=== PATIENT | male | born 1960 | race African-American/Black ===

== ENCOUNTER 2020-05-09 10:56 | Inpatient (IN) | payer OTHER ==
[~2020-05-09] VITALS: Ht 172.7 cm; Wt 87.0 kg
[2020-05-09] MEDS ORDERED: BAYER CHEWABLE81 MG PO (11:01)
[2020-05-09] MEDS ORDERED: IMODIUM2 MG PO (11:02)
[2020-05-09] MEDS ORDERED: CARDIZEM 90 MG90 MG PO (11:02)
[2020-05-09] MEDS ORDERED: DEPAKOTE500 MG PO (11:02)
[2020-05-09] MEDS ORDERED: HYDRALAZINE HCL25 MG PO (11:02)
[2020-05-09] MEDS ORDERED: ROCALTROL0.25 MCG PO (11:02)
[2020-05-09] MEDS ORDERED: XALATAN 0.0052.5 ML EACH EYE (11:03)
[2020-05-09] MEDS ORDERED: REGLAN5 MG PO (11:03)
[2020-05-09] MEDS ORDERED: VITAMIN B-625 MG PO (11:04)
[2020-05-09] MEDS ORDERED: HYTRIN5 MG PO (11:04)
[2020-05-09] MEDS ORDERED: SODIUM BICARBO650 MG PO (11:04)
[2020-05-09] MEDS ORDERED: NOVOLOG100 UNIT/1 SC (11:04)
[2020-05-09] MEDS ORDERED: TOPROL XL200 MG PO (11:04)
[2020-05-09] MEDS ORDERED: PROTONIX40 MG PO (11:04)
[2020-05-09 11:52] LABS: HEMATOCRIT 28.2 % (42.0-54.0); HEMOGLOBIN 8.7 g/dL (13.5-17.5); LYMPHOCYTES 15.5 % (15-50); MCH 27.5 pg (26.0-34.0); MCHC 30.9 g/dL (31.0-37.0); MCV 89.2 fL (80.0-100.0); MEAN PLATELET VOLUME 10.9 fL (7.4-10.4); NEUTROPHILS 74.4 % (40-80); PLATELET COUNT 199 10x3/uL (130-400); RBC 3.16 10x6/uL (4.20-6.10); RDW 13.4 % (11.5-14.5)
[2020-05-09 11:59] LABS: ANION GAP 26.2 mmol/L (8-16); CALCIUM 7.4 mg/dL (8.5-10.1); CARBON DIOXIDE 17.4 mmol/L (21.0-32.0); CREATININE - SERUM 9.7 mg/dL (0.6-1.3); POTASSIUM - SERUM 5.6 mmol/L (3.5-5.1)
[2020-05-09 12:04] LABS: APTT 26.6 SECONDS (22.8-39.4); INR 1.04 (0.85-1.17); PROTIME 13.6 SECONDS (11.6-15.0)
[2020-05-09 12:05] LABS: ALBUMIN 2.4 g/dL (3.4-5.0); BILIRUBIN - TOTAL 0.3 mg/dL (0.2-1.3); MAGNESIUM - SERUM 2.4 mg/dL (1.8-2.4); PROTEIN - SERUM 6.9 g/dL (6.4-8.2)
--- NOTE | 2020-05-09 12:47 | NUR ---
CRITICAL LAB: GLUCOSE 776. NOTIFIED JOHNATHON CRAFT NP.
[2020-05-09 14:24] LABS: C-REACTIVE PROTEIN 4.1 mg/dL (0.0-0.9); THYROID STIMULATING HORMONE 1.11 uIU/mL (0.36-3.74)
--- NOTE | 2020-05-09 16:10 | NUR ---
1610 PT OPEN EYES, OCC COUGH REPORT TO ER NURSEE.
--- NOTE | 2020-05-09 18:41 | NUR ---
ADMIT PT TO ICU. PT IN ISOLATION AWAITING COVID 19 TEST.
[2020-05-09 19:00] VITALS: BP 158/90
--- NOTE | 2020-05-09 19:00 | NUR ---
SHIFT ASSESSMENT COMPLETED. PT CARE ASSUMED. MONITORS ON AND WORKING, PT AWAKE AND ALERT, VSS, INSULIN DRIP INFUSING. CALL LIGHT WITHIN REACH, WILL CONTINUE TO OBSERVE.
[2020-05-09 20:00] VITALS: BP 145/98
[2020-05-09 20:31] VITALS: BP 163/58; BMI 30.1
[2020-05-09 21:00] VITALS: BP 149/85
--- NOTE | 2020-05-09 21:00 | NUR ---
PT LYING IN BED RESTING. Q1H FSBS, PT AWAKE AND ALERT, MONITORS ON AND WORKING, VITALS STABLE. CALL LIGHT WITHIN REACH, WILL CONTINUE TO OBSERVE.
[2020-05-09 22:00] VITALS: BP 133/76
[2020-05-09 22:29] LABS: ANION GAP 13.8 mmol/L (8-16); CALCIUM 7.4 mg/dL (8.5-10.1); CARBON DIOXIDE 24.8 mmol/L (21.0-32.0); CREATININE - SERUM 8.9 mg/dL (0.6-1.3); POTASSIUM - SERUM 3.6 mmol/L (3.5-5.1)
[2020-05-09 22:30] LABS: HEMATOCRIT 27.2 % (42.0-54.0); HEMOGLOBIN 8.8 g/dL (13.5-17.5)
[2020-05-09 23:00] VITALS: BP 140/70
--- NOTE | 2020-05-09 23:00 | NUR ---
NO CHANGES, MONITORS ON AND WORKING, VSS, CALL LIGHT WITHIN REACH, SEE FLOW SHEET FOR FURTHER DETAILS. WILL CONTINUE TO OBSERVE.
[2020-05-10] VITALS (22 sets, daily range): BP systolic 113–187; BP diastolic 61–91; BMI 30.1
--- NOTE | 2020-05-10 01:00 | NUR ---
PT LYING IN BED RESTING, MONITORS ON AND WORKING, VSS, CALL LIGHT WITHIN REACH, WILL CONTINUE TO OBSERVE.
--- NOTE | 2020-05-10 03:00 | NUR ---
DR KINNEY IN UNIT REVIEWING PT CHART. REC'D ORDERS TO START D5 1/2 NS AT 100ML/HR. SEE FLOW SHEET FOR FURTHER DETAILS, WILL CONTINUE TO OBSERVE.
--- NOTE | 2020-05-10 05:00 | NUR ---
PT LYING IN BED RESTING. MONITORS ON AND WORKING VSS. CALL LIGHT WITHIN REACH, WILL CONTINUE TO OBSERVE.
[2020-05-10 05:31] LABS: HEMATOCRIT 27.4 % (42.0-54.0); HEMOGLOBIN 8.9 g/dL (13.5-17.5); LYMPHOCYTES 24.1 % (15-50); MCH 28.3 pg (26.0-34.0); MCHC 32.5 g/dL (31.0-37.0); MEAN PLATELET VOLUME 10.1 fL (7.4-10.4); PLATELET COUNT 192 10x3/uL (130-400); RBC 3.15 10x6/uL (4.20-6.10); RDW 14.2 % (11.5-14.5); WBC 6.1 10x3/uL (4.8-10.8)
[2020-05-10 05:57] LABS: ALBUMIN 2.5 g/dL (3.4-5.0); ANION GAP 16.5 mmol/L (8-16); BILIRUBIN - TOTAL 0.18 mg/dL (0.2-1.3); CALCIUM 8.1 mg/dL (8.5-10.1); CARBON DIOXIDE 23.6 mmol/L (21.0-32.0); CREATININE - SERUM 8.8 mg/dL (0.6-1.3); MAGNESIUM - SERUM 2.3 mg/dL (1.8-2.4); POTASSIUM - SERUM 4.1 mmol/L (3.5-5.1); PROTEIN - SERUM 6.2 g/dL (6.4-8.2); THYROID STIMULATING HORMONE 1.19 uIU/mL (0.36-3.74); TROPONIN-I 0.024 ng/mL (0.000-0.060)
[2020-05-10 06:04] LABS: PHOSPHOROUS 3.4 mg/dL (2.5-4.9)
--- NOTE | 2020-05-10 08:48 | NUR ---
SPOKE WITH PT FAMILY MEMBER. UPDATE GIVEN. WILL CONTINUE TO MONITOR
--- NOTE | 2020-05-10 10:34 | NUR ---
PHONE CALL DR KINNEY. LAB RESULTS REVIEWED. ORDERED STAT CMP AND MAG. ORDERS PLACED.
--- NOTE | 2020-05-10 14:11 | NUR ---
DR JANIS RYDER FOR TRIALYSIS CATH.
[2020-05-10 16:50] LABS: HEMATOCRIT 28.8 % (42.0-54.0); HEMOGLOBIN 8.6 g/dL (13.5-17.5)
--- NOTE | 2020-05-10 16:50 | NUR ---
SPOKE WITH PT FAMILY MEMBER. UPDATE GIVEN. NO FURTHER QUESTIONS AT THIS TIME. WILL CONTINUE TO MONITOR
[2020-05-10 17:55] LABS: ANION GAP 19.6 mmol/L (8-16); CALCIUM 7.6 mg/dL (8.5-10.1); CREATININE - SERUM 8.2 mg/dL (0.6-1.3); POTASSIUM - SERUM 3.6 mmol/L (3.5-5.1)
[2020-05-10 18:03] LABS: ALBUMIN 2.2 g/dL (3.4-5.0); BILIRUBIN - TOTAL 0.21 mg/dL (0.2-1.3); MAGNESIUM - SERUM 1.8 mg/dL (1.8-2.4); PROTEIN - SERUM 5.8 g/dL (6.4-8.2)
--- NOTE | 2020-05-10 18:22 | NUR ---
PAGED DR KINNEY TO RELAY LAB RESULTS. AWAITING CALL BACK
--- NOTE | 2020-05-10 18:45 | NUR ---
DR KINNEY RETURNED CALL. UPDATE GIVEN. NEW ORDERS RECEIVED. WILL CONTINUE TO MONITOR
--- NOTE | 2020-05-10 19:00 | NUR ---
SHIFT ASSESSMENT COMPLETED. PT CARE ASSUMED. MONITORS ON AND WORKING, VSS. PT AWAKE AND ALERT. NO SIGNS/SYMPTOMS OF PAIN OR DISCOMFORT NOTED. CALL LIGHT WITHIN REACH, WILL CONTINUE TO OBSERVE.
--- NOTE | 2020-05-10 21:00 | NUR ---
PT LYING IN BED RESTING. MONITORS ON AND WORKING, VSS. CALL LIGHT WITHIN REACH, WILL CONTINUE TO OBSERVE.
--- NOTE | 2020-05-10 23:00 | NUR ---
NO CHANGES. MONITORS ON AND WORKING VSS. CALL LIGHT WITHIN REACH, WILL CONTINUE TO OBSERVE. SEE FLOW SHEET FOR FURTHER DETAILS. WILL CONTINUE TO OBSERVE.
[2020-05-11] VITALS (16 sets, daily range): BP systolic 93–171; BP diastolic 63–99; Ht 172.7 cm; Wt 87.0 kg
--- NOTE | 2020-05-11 01:00 | NUR ---
NO CHANGES, PT RESTING. MONITORS ON AND WORKING, VSS. CALL LIGHT WITHIN REACH, WILL CONTINUE TO OBSERVE.
--- NOTE | 2020-05-11 03:00 | NUR ---
CHG BATH AND LINEN CHANGE COMPLETED. PT TOLERATED WELL. FSBS Q1H, MONITORS ON AND WORKING, VSS. CALL LIGHT WITHIN REACH, SEE FLOW SHEET FOR FURTHER DETAILS. WILL CONTINUE TO OBSERVE.
--- NOTE | 2020-05-11 05:00 | NUR ---
PT LYING IN BED RESTING. MONITORS ON AND WORKING, VSS. CALL LIGHT WITHIN REACH, WILL CONTINUE TO OBSERVE.
--- NOTE | 2020-05-11 07:00 | NUR ---
BEDSIDE REPORT RECEIVED. SHIFT ASSESSMENT COMPLETED PER FLOWSHEET, SEE FLOWSHEET FOR INFORMATION. VSS. NO ACUTE NEEDS OR DISTRESS NOTED AT THIS TIME. DECREASED INSULIN DRIP PER PROTOCOL. WILL CONT TO MONITOR.
[2020-05-11 07:15] LABS: ANION GAP 15.3 mmol/L (8-16); CALCIUM 7.4 mg/dL (8.5-10.1); CREATININE - SERUM 7.5 mg/dL (0.6-1.3); POTASSIUM - SERUM 3.3 mmol/L (3.5-5.1)
[2020-05-11 07:19] LABS: PHOSPHOROUS 2.1 mg/dL (2.5-4.9)
[2020-05-11 08:01] LABS: HEMATOCRIT 24.4 % (42.0-54.0); HEMOGLOBIN 7.6 g/dL (13.5-17.5); LYMPHOCYTES 16.4 % (15-50); MCH 27.3 pg (26.0-34.0); MCHC 31.1 g/dL (31.0-37.0); MCV 87.8 fL (80.0-100.0); MEAN PLATELET VOLUME 9.9 fL (7.4-10.4); NEUTROPHILS 79.8 % (40-80); PLATELET COUNT 170 10x3/uL (130-400); RBC 2.78 10x6/uL (4.20-6.10); RDW 13.9 % (11.5-14.5); WBC 6.7 10x3/uL (4.8-10.8)
--- NOTE | 2020-05-11 09:00 | NUR ---
PT MAKING CONVERSTAION WITH ME USING ASL, NO ACUTE NEEDS OR DISTRESS NOTED AT THIS TIME. VSS. WILL CONT TO MONITOR.
--- NOTE | 2020-05-11 09:07 | NUR ---
Nutrition follow-up: Pt intubated, sedated; COVID+ NPO Insulin drip until anion gap closed for 24 hours Labs reviewed Wt: 197# RDN following.
[2020-05-11 10:32] LABS: % SATURATION 17 % (15-55); IRON 22 ug/dl (35-150); TOTAL IRON BIND CAPACITY 128 ug/dl (260-445); UNSAT IRON BIND CAPACITY 106 ug/dl (150-375)
--- NOTE | 2020-05-11 11:00 | NUR ---
VSSREASSESSMENT CCOMPLETED PER FLOWSHEET, SEE FLOWSHEET FOR INFORMATION. NO ACUTE NEEDS OR DISTRESS NOTED AT THIS TIME. AT BEDSIDE INSERTING RIGHT TRIALYSIS CATHETER. WILL CONT TO MONITOR. VSS.
--- NOTE | 2020-05-11 11:07 | NUR ---
GAVE PERMISSION TO USE TRIALYSIS CATH AFTER LOOKING AT CXR. WILL CONT TO MONITOR.
--- NOTE | 2020-05-11 13:00 | NUR ---
PT DENIES ANY ACUTE NEEDS OR DISTRESS AT THIS TIME. WILL CONT TO MONITOR.
--- NOTE | 2020-05-11 14:08 | NUR ---
SPOKE WITH DIALYSIS NURSE, DIALYSIS NURSE AGREED TO GIVING 2 UNITS OF PRBC VIA DIALYSIS TODAY. WILL CONT TO MONITOR.
--- NOTE | 2020-05-11 15:00 | NUR ---
VSS, NO ACUTE NEEDS OR DISTRESS NOTED AT THIS TIME. WILL CONT TO MONITOR.
[2020-05-11 15:33] LABS: HEMATOCRIT 25.1 % (42.0-54.0); HEMOGLOBIN 7.7 g/dL (13.5-17.5)
--- NOTE | 2020-05-11 17:00 | NUR ---
PT DENIES ANY ACUTE NEEDS OR DISTRESS AT THIS TIME. NEW GOWN AND BRIEFS GIVEN. WILL CONT TO MONITO.R
--- NOTE | 2020-05-11 17:38 | NUR ---
REPORT CALLED TO EVA ESTES ON MED 2. BLOOD SUGAR CHECKED. WILL CONT TO MONITOR.
--- NOTE | 2020-05-11 18:25 | NUR ---
RECIEVED PT FROM ICU, BLACK GAVE PM MEDS MUCH TO MY APPRECIATION. CL IN REACH, SRX2. DIALYSIS AT BEDSIDE.
--- NOTE | 2020-05-11 18:26 | NUR ---
TRANSFERRED PT TO ROOM 2129, EVA ESTES AT BEDSIDE. PT DENIES ANY ACUTE NEEDS OR DISTRESS AT THIS TIME.
--- NOTE | 2020-05-11 19:30 | NUR ---
PT IN BED, AAO X 3, RESP EVEN AND UNLABORED, NO DISTRESS NOTED, CL IN REACH, SR UP X 2.
[2020-05-11 20:55] LABS: HEMATOCRIT 44.7 % (42.0-54.0); HEMOGLOBIN 14.2 g/dL (13.5-17.5)
--- NOTE | 2020-05-12 03:57 | NUR ---
I have reviewed this patient and I concur with the Shift Assessment completed by the Licensed Practical Nurse today this shift.
[2020-05-12 04:17] VITALS: BP 169/67
[2020-05-12 06:19] LABS: BASOPHILS 0.1 % (0-2); EOSINOPHILS 0 % (0-7); IMMATURE GRANULOCYTES 1.2 % (0-5); LYMPHOCYTES 12.5 % (15-50); MCH 27.5 pg (26.0-34.0); MCHC 31.8 g/dL (31.0-37.0); MCV 86.4 fL (80.0-100.0); MEAN PLATELET VOLUME 10.6 fL (7.4-10.4); MONOCYTES 4.8 % (2-11); NEUTROPHILS 81.4 % (40-80); RDW 14.5 % (11.5-14.5); WBC 7.7 10x3/uL (4.8-10.8)
[2020-05-12 06:21] LABS: HEMATOCRIT 30.5 % (42.0-54.0); HEMOGLOBIN 9.7 g/dL (13.5-17.5); PLATELET COUNT 120 10x3/uL (130-400); RBC 3.53 10x6/uL (4.20-6.10)
[2020-05-12 06:46] LABS: BILIRUBIN - TOTAL 0.51 mg/dL (0.2-1.3); CALCIUM 7.8 mg/dL (8.5-10.1); CARBON DIOXIDE 21.1 mmol/L (21.0-32.0); MAGNESIUM - SERUM 1.7 mg/dL (1.8-2.4); PHOSPHOROUS 2.6 mg/dL (2.5-4.9); POTASSIUM - SERUM 4.1 mmol/L (3.5-5.1); PROTEIN - SERUM 5.6 g/dL (6.4-8.2)
[2020-05-12 06:51] LABS: CREATININE - SERUM 5.2 mg/dL (0.6-1.3)
--- NOTE | 2020-05-12 09:39 | NUR ---
PT AWAKE AND ORIENTED, LYING IN BED. ABLE TO PULL HIMSELF UP. PER CUPOLA HOIST OPERATOR PERMISSION, I CLEANED IV POLE, ADDED EXTENSION TUBING, AND PLACED POLE OUTSIDE THE ROOM. MUCH EASIER TO DEAL WITH THE FREQUENT OCCLUSIONS. PT STATES HE FEELS ALRIGHT, NO COMPLAINTS OR CONCERNS A THIS TIME. CL IN REACH, SRX2.
[2020-05-12 12:13] VITALS: BP 158/80
--- NOTE | 2020-05-12 15:42 | NUR ---
I have reviewed this patient and I concur with the Shift Assessment completed by the Licensed Practical Nurse today this shift.
--- NOTE | 2020-05-12 17:50 | NUR ---
PT AWAKE AND ORIENTED, EARLIER TODAY HE REQUESTED TO GET OUT OF BED. CLEANED UP BOWEL MOVEMENT, LET PT STAND. HE IS ABLE TO WALK WITH STANDBY ASSIST. WENT OT HE BATHROOM SEVERAL MORE TIMES. NO COMPLAINTS OR CONCENRS AT THIS TIME. CL IN REACH, SRX2. DIALYSIS IN ROOM. PT SAT IN CHAIR FOR 20 MINUTES, ATE SMALL AMOUTN OF FOOD TODAY.
--- NOTE | 2020-05-12 19:45 | NUR ---
PT IN BED, AAO X 3, RESP EVEN AND UNLABORED, NO DISTRESS NOTED, PT RECEIVING DIALYSIS AT THIS TIME, CL IN REACH, SR UP X 2.
[2020-05-12 20:25] VITALS: BP 145/79
[2020-05-13 00:42] VITALS: BP 153/79
--- NOTE | 2020-05-13 04:05 | NUR ---
I have reviewed this patient and I concur with the Shift Assessment completed by the Licensed Practical Nurse today this shift.
[2020-05-13 04:31] VITALS: BP 140/77
[2020-05-13 05:17] LABS: BASOPHILS 0.2 % (0-2); EOSINOPHILS 0 % (0-7); HEMOGLOBIN 9.6 g/dL (13.5-17.5); IMMATURE GRANULOCYTES 1.7 % (0-5); LYMPHOCYTES 24.9 % (15-50); MCH 27.4 pg (26.0-34.0); MCV 85.7 fL (80.0-100.0); MEAN PLATELET VOLUME 10.2 fL (7.4-10.4); MONOCYTES 8.3 % (2-11); NEUTROPHILS 64.9 % (40-80); PLATELET COUNT 118 10x3/uL (130-400); RDW 14.5 % (11.5-14.5)
[2020-05-13 05:22] LABS: WBC 5.3 10x3/uL (4.8-10.8)
[2020-05-13 05:47] LABS: CALCIUM 8.1 mg/dL (8.5-10.1); PHOSPHOROUS 2.3 mg/dL (2.5-4.9)
[2020-05-13 05:53] LABS: CREATININE - SERUM 4.3 mg/dL (0.6-1.3); MAGNESIUM - SERUM 1.9 mg/dL (1.8-2.4)
[2020-05-13 05:56] LABS: ANION GAP 10.2 mmol/L (8-16); POTASSIUM - SERUM 3.2 mmol/L (3.5-5.1)
[2020-05-13 08:15] VITALS: BP 166/90
--- NOTE | 2020-05-13 18:01 | NUR ---
I have reviewed this patient and I concur with the Shift Assessment completed by the Licensed Practical Nurse today this shift.
--- NOTE | 2020-05-13 18:19 | NUR ---
PT HAS BEEN AWAKE AND ORIENTED THROUGHOUT THE DAY. SALINE LOCKED PER MD ORDER, PT HAS BEEN ABLE TO GET HIMSELF TO AND FROM THE BATHROOM WITHOUT DIFFICULTY. APPEARS STRONGER THAN PREVIOUS SHIFTS. CL IN REACH, SRX2. NO COMPLAINTS/CONCERNS AT THIS TIME.
--- NOTE | 2020-05-13 18:30 | NUR ---
TRANSFER FROM ICU BY W/C. MANDEEPINTED TO ROOM. CALL LIGHT IN REACH. WILL CONT PLAN OF CARE.
--- NOTE | 2020-05-13 19:50 | NUR ---
ROUNDED ON PT AND NO NEEDS ARE MADE KNOWN PT HAD A FEW QUESTIONS HATB I ANSWERED BED IS LOW AND LOCKED PT HAS SL IV AND ABLE TO SAFELY AMBULATE AROUND THE ROOM CALL LIGHT WAS PT WITHIN PT REACH
[2020-05-13 21:27] VITALS: BP 160/85
[2020-05-14 04:45] VITALS: BP 156/80
[2020-05-14 05:53] LABS: ALBUMIN 1.9 g/dL (3.4-5.0); ANION GAP 9.5 mmol/L (8-16); BILIRUBIN - TOTAL 0.24 mg/dL (0.2-1.3); CALCIUM 7.9 mg/dL (8.5-10.1); CREATININE - SERUM 5.2 mg/dL (0.6-1.3); MAGNESIUM - SERUM 2.1 mg/dL (1.8-2.4); PHOSPHOROUS 2.6 mg/dL (2.5-4.9); POTASSIUM - SERUM 3.5 mmol/L (3.5-5.1); PROTEIN - SERUM 5.9 g/dL (6.4-8.2)
--- NOTE | 2020-05-14 06:47 | NUR ---
I have reviewed this patient and I concur with the Shift Assessment completed by the Licensed Practical Nurse today this shift.
[2020-05-14 06:53] LABS: BASOPHILS 0.3 % (0-2); EOSINOPHILS 1.4 % (0-7); HEMATOCRIT 29.9 % (42.0-54.0); HEMOGLOBIN 9.6 g/dL (13.5-17.5); LYMPHOCYTES 30.4 % (15-50); MCH 27.9 pg (26.0-34.0); MCHC 32.1 g/dL (31.0-37.0); MCV 86.9 fL (80.0-100.0); MEAN PLATELET VOLUME 9.6 fL (7.4-10.4); MONOCYTES 13.9 % (2-11); RBC 3.44 10x6/uL (4.20-6.10); RDW 14.6 % (11.5-14.5); WBC 5.8 10x3/uL (4.8-10.8)
[2020-05-14 06:55] LABS: PLATELET COUNT 177 10x3/uL (130-400)
[2020-05-14 08:16] VITALS: BP 164/94
--- NOTE | 2020-05-14 09:18 | NUR ---
PT AWAKE AND ORIENTED. NO COMPLAINTS OR CONCERNS AT THIS TIME. ATE BREAKFAST, UP WITHOTU ASSIST TO THE BATHROOM. NO COMPLAINTS OR CONCENRS STATED AT THIS TIME. CL IN REACH, SRX2.
--- NOTE | 2020-05-14 17:46 | NUR ---
PT HAS BEEN AWAKE AND OREINTED, UP WITH OUT DIFFICULTY AROUND ROOM. NO COMPLAINTS OR CONCERNS THROUGHOUT THE DAY. SPOKE WITH DIALYSIS COORIDNATER AND [facility] REP, SHE ASKED FOR SOME TIME TO ARRANGE HIS TREATMENT AN DHOUSING. WILL CNT. TO MONITOR. PT STABLE ON ROOM AIR. CL IN REACH, SRX2.
--- NOTE | 2020-05-14 18:37 | NUR ---
I have reviewed this patient and I concur with the Shift Assessment completed by the Licensed Practical Nurse today this shift.
--- NOTE | 2020-05-14 19:12 | NUR ---
ROUNDED ON PT PT IS AT REST AND AROUSES EASILY BED IS LOW AND LOCKED AND CALL LIGHT IS WITH PT PT DENIES ANY NEEDS AT THIS TIME
[2020-05-14 21:00] LABS: HEMATOCRIT 30.5 % (42.0-54.0); HEMOGLOBIN 9.7 g/dL (13.5-17.5)
[2020-05-14 21:26] VITALS: BP 124/64
[2020-05-15 00:30] VITALS: BP 168/94
--- NOTE | 2020-05-15 02:37 | NUR ---
I have reviewed this patient and I concur with the Shift Assessment completed by the Licensed Practical Nurse today this shift.
[2020-05-15 05:32] LABS: BASOPHILS 0 % (0-2); HEMATOCRIT 30.2 % (42.0-54.0); HEMOGLOBIN 9.6 g/dL (13.5-17.5); IMMATURE GRANULOCYTES 0.6 % (0-5); LYMPHOCYTES 29.9 % (15-50); MCH 27.7 pg (26.0-34.0); MCHC 31.8 g/dL (31.0-37.0); MEAN PLATELET VOLUME 9.3 fL (7.4-10.4); MONOCYTES 16.6 % (2-11); NEUTROPHILS 49.9 % (40-80); PLATELET COUNT 208 10x3/uL (130-400); RBC 3.47 10x6/uL (4.20-6.10); RDW 14.3 % (11.5-14.5); WBC 5.4 10x3/uL (4.8-10.8)
[2020-05-15 05:53] LABS: ALBUMIN 1.9 g/dL (3.4-5.0); BILIRUBIN - TOTAL 0.28 mg/dL (0.2-1.3); CALCIUM 8.1 mg/dL (8.5-10.1); CARBON DIOXIDE 25.4 mmol/L (21.0-32.0); CREATININE - SERUM 5.1 mg/dL (0.6-1.3); MAGNESIUM - SERUM 1.9 mg/dL (1.8-2.4)
[2020-05-15 06:43] LABS: ANION GAP 12.5 mmol/L (8-16); POTASSIUM - SERUM 3.9 mmol/L (3.5-5.1)
[2020-05-15 09:16] VITALS: BP 157/77
--- NOTE | 2020-05-15 10:08 | NUR ---
REPORT RECEIVED. WILL CONTINUE WITH POC. PT IS ASLEEP UPON ENTERING THE ROOM. VSS AND WNL. RR EVEN AND UNLABORED ON RA. NO S/S OF DISTRESS NOTED. R.IJ TRI SALINE LOCKED. AM MEDS ADMINISTERED. PT DENIES ANY FURTHER NEEDS. WILL CTM.
[2020-05-15 14:10] LABS: HEPATITIS C ANTIBODY 0.2 S/CO RAT (0.0-0.9)
[2020-05-15 14:13] LABS: HEMATOCRIT 28.7 % (42.0-54.0); HEMOGLOBIN 9.2 g/dL (13.5-17.5)
--- NOTE | 2020-05-15 14:25 | NUR ---
NUTRITION F/U CHART REVIEWED. PT REMAINS IN ISOLATION. NURSING REPORTS PT TOLERATING DIABETIC DIET WITH GOOD PO INTAKE. WILL CONTINUE PROVIDE DIET, MONITOR PT PROGRESS. RD FOLLOWING
[2020-05-15 17:06] VITALS: BP 153/72
[2020-05-16 00:20] LABS: HEMATOCRIT 28.9 % (42.0-54.0); HEMOGLOBIN 9.3 g/dL (13.5-17.5)
[2020-05-16 04:00] VITALS: BP 145/77
--- NOTE | 2020-05-16 04:08 | NUR ---
I have reviewed this patient and I concur with the Shift Assessment completed by the Licensed Practical Nurse today this shift.
[2020-05-16 07:02] LABS: ANION GAP 9.1 mmol/L (8-16); CARBON DIOXIDE 27.3 mmol/L (21.0-32.0); CREATININE - SERUM 4.5 mg/dL (0.6-1.3); POTASSIUM - SERUM 3.4 mmol/L (3.5-5.1)
[2020-05-16 08:09] LABS: HEMATOCRIT 27.9 % (42.0-54.0); HEMOGLOBIN 8.8 g/dL (13.5-17.5); MCH 27.6 pg (26.0-34.0); MCHC 31.5 g/dL (31.0-37.0); MCV 87.5 fL (80.0-100.0); MEAN PLATELET VOLUME 9.2 fL (7.4-10.4); PLATELET COUNT 220 10x3/uL (130-400); RBC 3.19 10x6/uL (4.20-6.10); WBC 4.9 10x3/uL (4.8-10.8)
[2020-05-16 08:20] VITALS: BP 153/78
[2020-05-16 09:02] LABS: BASOPHILS 1 % (0-2); EOSINOPHILS 1 % (0-7); LYMPHOCYTES 37 % (15-50); MONOCYTES 19 % (2-11); NEUTROPHILS 42 % (40-80); PLATELET ESTIMATE NORMAL
[2020-05-16 14:26] VITALS: BP 146/73
[2020-05-16 14:47] LABS: HEMATOCRIT 29.2 % (42.0-54.0); HEMOGLOBIN 9.4 g/dL (13.5-17.5)
--- NOTE | 2020-05-16 19:30 | NUR ---
PT IN BED, AAO X 3, PT RESP EVEN AND UNLABORED. NO DISTRESS NOTED, CL IN REACH, SR UP X 2.
[2020-05-17 04:00] VITALS: BP 136/68
--- NOTE | 2020-05-17 04:03 | NUR ---
I have reviewed this patient and I concur with the Shift Assessment completed by the Licensed Practical Nurse today this shift.
[2020-05-17 04:26] LABS: BASOPHILS 0 % (0-2); EOSINOPHILS 4.4 % (0-7); HEMOGLOBIN 8.8 g/dL (13.5-17.5); IMMATURE GRANULOCYTES 0.5 % (0-5); LYMPHOCYTES 27.9 % (15-50); MCH 27.4 pg (26.0-34.0); MCHC 31.4 g/dL (31.0-37.0); MCV 87.2 fL (80.0-100.0); MEAN PLATELET VOLUME 9.1 fL (7.4-10.4); MONOCYTES 14.8 % (2-11); NEUTROPHILS 52.4 % (40-80); PLATELET COUNT 227 10x3/uL (130-400); RBC 3.21 10x6/uL (4.20-6.10); RDW 13.8 % (11.5-14.5); WBC 5.5 10x3/uL (4.8-10.8)
[2020-05-17 04:36] LABS: ANION GAP 9.2 mmol/L (8-16); CARBON DIOXIDE 26.5 mmol/L (21.0-32.0); CREATININE - SERUM 4.6 mg/dL (0.6-1.3); POTASSIUM - SERUM 3.7 mmol/L (3.5-5.1)
--- NOTE | 2020-05-17 09:16 | MORECARE ---
CASE MANAGEMENT DISCHARGE SUMMARY PATIENT: SERGIO METZGER UNIT: [id number] ADM DATE: 05/09/20 AGE: 59 : 62 SEX: M ROOM/BED: D.4795 AUTHOR: ROLAND CALZADA PHYSICIAN: REFERRING PHYSICIAN: LATASHA CANTU DO DATE OF SERVICE: 05/17/20 Discharge Plan Patient Name: SERGIO METZGER Facility: [facility]:[place] : 1960 Planned Disposition: Anticipated Discharge Date: Discharge Date: Expected LOS: Initial Reviewer: [email or web address] Initial Review Date: 05/09/2020 Generated: 05/17/20 10:16 am Comments DCP- Discharge Planning Updated by [email or web address]: Jacinda Gilliam on 05/17/20 8:[address] Patient Name: SERGIO METZGER Admission Status: ER Accout number: [id number] Admission Date: 05-09-2020 : 1960 Admission Diagnosis:GASTROINTESTINAL HEMORRHAGE, UNSPECIFIED Attending: LATASHA CANTU Current LOS: 8 Anticipated DC Date: Planned Disposition: Primary Insurance: [employer] ADMINISTRATION Discharge Planning Comments: CM met with patient to complete initial dc planning assessment. CM educated patient on the CM role and verbal consent given by patient to complete assessment. CM verified patient's address, phone number, and emergency contact phone numbers. Patient lives at home with his Yuly ([phone]). At discharge patient plans to return home and feels this is a safe discharge. CM discussed availability of home health, rehab services, and medical equipment. Patient denied known discharge needs at this time. Patient states his is unable to pick him up because of the COVID. CM called Tiff at the [facility] to ask for assistance at [phone], but unable to reach so voice mail message was left. Pt called pt to assist with transportation. Patient states his friend Price Pat is willing to pick him up. His number is [phone]. Pt denies being on oxygen, and states he is feeling good and ready to go home. States he is independent of his needs, and declines any home health services. CM will continue to follow and will assist as needed with dc plans/needs. Clerk Manager: Jacinda Gilliam DCPIA - Discharge Planning Initial Assessment Updated by [id number]: Jacinda Gilliam on 05/17/20 8:47 am * Is the patient Alert and Oriented? Yes * How many steps to enter\exit or inside your home? 0/0 * PCP DELFIN FROM [facility] * Pharmacy [facility] * Preadmission Environment Home with Family * ADLs Independent * Equipment None * List name and contact numbers for known caregivers / representatives who currently or will assist patient after discharge: YULY METZGER [phone] PRICE PAT FAMILY FRIEND [phone] * Verbal permission to speak to the caregivers and representatives has been obtained from the patient. Yes * Community resources currently utilized Other * Additional services required to return to the preadmission environment? No * Can the patient safely return to the preadmission environment? Yes * Has this patient been hospitalized within the prior 30 days at any hospital? No Patient Name: SERGIO METZGER Page [id number] at 0916 All edits/amendments must be made on the electronic document DICTATION DATE: 05/17/20915 GOOD HUMOR VENDOR: AYO 05/17/20915 RPT#: [id number] DC DATE: STATUS: ADM IN [facility] [address] [place] [address] END OF REPORT
--- NOTE | 2020-05-17 10:32 | NUR ---
PT'S DISCHARGE INSTRUCTIONS REVIEWED. TRIALYSIS CATHETER LEFT UNTIL SEEN BY RENAL ON 05/21 TO DETERMINE NEED FOR DIALYSIS. PIV REMOVED. GOWNED AND TRANSPORTED TO ER FOR PICKUP FROM FRIEND.
--- NOTE | 2020-05-17 13:27 | OP ---
PATIENT NAME: SERGIO METZGER MEDICAL RECORD: [id number] :62 LOCATION:D.M2 D.2129 ADMISSION DATE:05/09/20 SURGEON: WALLY BRUCE MD DATE OF OPERATION: 05/11/2020 PREOPERATIVE DIAGNOSES: 1. Need for IV access. 2. Edhwh-zo-szauzcr kidney disease. 3. COVID positive. 4. Pneumonia. 5. Anemia. POSTOPERATIVE DIAGNOSES: 1. Need for IV access. 2. Vwalc-ni-dckokqr kidney disease. 3. COVID positive. 4. Pneumonia. 5. Anemia. PROCEDURE: Right subclavian vein 12.5 cm Trialysis catheter placement. SURGEON: Wally Bruce MD REPORT OF PROCEDURE: The patient's right neck was prepped and draped in sterile fashion. A 5 cc of 1% lidocaine with epinephrine was infused into the surrounding tissues. Using ultrasound guidance, a needle was used to cannulate the right internal jugular vein. A guidewire was advanced with ease. Over this wire, a dilator was placed followed by the Trialysis catheter. The catheter aspirated nonpulsatile dark blood and flushed easily in all 3 ports. This was sutured into place with 4-0 nylon and dressed appropriately. COMPLICATIONS: None. CONDITION: Stable. ANESTHESIA: Local. BLOOD LOSS: Minimal. Procedure done in the ICU at the bedside. TRANSINT:[id number] Voice Confirmation ID: [id number] DOCUMENT ID: [id number] WALLY BRUCE MD at 1327 CC: [id number] DICTATION DATE: 05/11/20 1143 STAFF SOFTWARE ENGINEER: 05/11/20 1436 DIS IN 05/17/20 [place] [id number] [place] [id number]
--- NOTE | 2020-05-18 18:46 | MORECARE ---
CASE MANAGEMENT DISCHARGE SUMMARY PATIENT: SERGIO METZGER UNIT: [id number] ADM DATE: 05/09/20 AGE: 59 : 62 SEX: M ROOM/BED: D.9260 AUTHOR: ROLAND CALZADA PHYSICIAN: REFERRING PHYSICIAN: LATASHA CANTU DO DATE OF SERVICE: 05/18/20 Discharge Plan Patient Name: SERGIO METZGER Facility: [facility]:[place] : 1960 Planned Disposition: Anticipated Discharge Date: Discharge Date: 05/17/2020 Expected LOS: Initial Reviewer: [email or web address] Initial Review Date: 05/09/2020 Generated: 05/18/20 7:45 pm Comments DCP- Discharge Planning Updated by [email or web address]: Jacinda Gilliam on 05/17/20 8:[address] Patient Name: SERGIO METZGER Admission Status: ER Accout number: [id number] Admission Date: 05-09-2020 : 1960 Admission Diagnosis:GASTROINTESTINAL HEMORRHAGE, UNSPECIFIED Attending: LATASHA CANTU Current LOS: 8 Anticipated DC Date: Planned Disposition: Primary Insurance: [employer] ADMINISTRATION Discharge Planning Comments: CM met with patient to complete initial dc planning assessment. CM educated patient on the CM role and verbal consent given by patient to complete assessment. CM verified patient's address, phone number, and emergency contact phone numbers. Patient lives at home with his Yuly ([phone]). At discharge patient plans to return home and feels this is a safe discharge. CM discussed availability of home health, rehab services, and medical equipment. Patient denied known discharge needs at this time. Patient states his is unable to pick him up because of the COVID. CM called Tiff at the [facility] to ask for assistance at [phone], but unable to reach so voice mail message was left. Pt called pt to assist with transportation. Patient states his friend Price Pat is willing to pick him up. His number is [phone]. Pt denies being on oxygen, and states he is feeling good and ready to go home. States he is independent of his needs, and declines any home health services. CM will continue to follow and will assist as needed with dc plans/needs. Cell Cleaner: Jacinda Gilliam DCPIA - Discharge Planning Initial Assessment Updated by [email or web address]: Jacinda Gilliam on 05/17/20 8:47 am * Is the patient Alert and Oriented? Yes * How many steps to enter\exit or inside your home? 0/0 * PCP DELFIN FROM [facility] * Pharmacy [facility] * Preadmission Environment Home with Family * ADLs Independent * Equipment None * List name and contact numbers for known caregivers / representatives who currently or will assist patient after discharge: YULY METZGER [phone] PRICE PAT FAMILY FRIEND [phone] * Verbal permission to speak to the caregivers and representatives has been obtained from the patient. Yes * Community resources currently utilized Other * Additional services required to return to the preadmission environment? No * Can the patient safely return to the preadmission environment? Yes * Has this patient been hospitalized within the prior 30 days at any hospital? No Last DP export: 05/17/20 8:16 a Patient Name: SERGIO METZGER Page 16131 at 1846 All edits/amendments must be made on the electronic document DICTATION DATE: 05/18/201845 TRANSMITTER CHIEF: AYO 05/18/201845 RPT#: [id number] NE DATE:05/17/20 STATUS: DIS IN [facility] [address] [place] [address] END OF REPORT
== END 2020-05-17 10:33 | disposition home or self-care (01) | DRG 377 ==
LOC: D.ER 10:56 → D.ICU 18:08 → D.M2 05-11 18:03
PROVIDERS: Emergency Medicine; Family Medicine; Internal Medicine Gastroenterology; Internal Medicine Nephrology; ADMIT Family Medicine; ATTEND Family Medicine
PROC: 0DJ08ZZ Inspection of Upper Intestinal Tract, Via Natural or Artificial Opening Endoscopic (ICD-10-PCS; principal; 2020-05-09 15:00)
PROC: 05HM33Z Insertion of Infusion Device into Right Internal Jugular Vein, Percutaneous Approach (ICD-10-PCS; 2020-05-11)
DX: K29.71 Gastritis, unspecified, with bleeding (principal); U07.1 COVID-19; E11.10 Type 2 diabetes mellitus with ketoacidosis without coma; J18.9 Pneumonia, unspecified organism; I12.0 Hypertensive chronic kidney disease with stage 5 chronic kidney disease or end stage renal disease; N18.5 Chronic kidney disease, stage 5; D62 Acute posthemorrhagic anemia; E87.0 Hyperosmolality and hypernatremia; N17.9 Acute kidney failure, unspecified; E11.22 Type 2 diabetes mellitus with diabetic chronic kidney disease; E11.65 Type 2 diabetes mellitus with hyperglycemia; E21.3 Hyperparathyroidism, unspecified; G40.909 Epilepsy, unspecified, not intractable, without status epilepticus; E78.5 Hyperlipidemia, unspecified